=== PATIENT | female | born 1995 | race Caucasian/White ===

== ENCOUNTER → 2022-07-03 | Outpatient (CLI) | payer BC ==
[~2022-07-03] VITALS: Ht 157.5 cm; Wt 125.0 kg
[~2022-07-03] MED LIST: GLUCOPHAGE XR750 MG PO; PRENATAL FORMU1 EAC3 PO; UNISOM25 MG PO
[2022-07-03 17:20] VITALS: BP 124/68; PULSE 78; TEMP 98.1
[2022-07-03 17:53] VITALS: BP 120/62; PULSE 107
--- NOTE | 2022-07-03 17:54 | NUR ---
1750 FHT 125 BABY VERY ACTIVE, WITH REACTIVE STRIP. DR DUTTON CALLED WITH ALL INFORMATION AND ORDERS TO DISMISS TO RETURN SATURDAY FOR INDUCTION. ALL DISCHARGE INSTRUCTIONS GIVEN TO PATIENT AND , VERBAL UNDERSTANDING.
== END ==
LOC: LDRO 17:16
DX: Z36.83 Encounter for fetal screening for congenital cardiac abnormalities (principal); Z3A.38 38 weeks gestation of pregnancy

== ENCOUNTER → 2022-07-11 | Outpatient (CLI) | payer BC ==
[~2022-07-11] MED LIST changes: +IBU800 M1 PO; +PERCOCET 325 MG1 TA3 PO
--- NOTE | 2022-07-11 13:20 | NUR ---
Pt, Isamar Garcia, presents to outpatient consult with 5 day old baby girl Jaci Garcia, and her Jatinder Garcia. Pt is know to this LC from their hospital stay and is aware Jaci is not latching well. Jaci was born on [birth year] and weighed 7# 0.5oz (3190 gms). was difficult in the hospital due to several factors and at time of discharge pt was offering Jaci breast, pumping and bottle feeding. At this age Jaci is drinking 30-60ml of EBM per feeding. Pt is expressing 100-150ml per breast so is only pumping x4 per day. Today Jaci weighs 6# 12.1oz (3064 gms). Discharge weight two days ago was 3020 gms. 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 She does not grasp the gloved finger offered with oral examination, LC feels gum compression on the back of the finger. When latching Jaci is quite fussy and does not grasp the breast for latching. Breastmilk is easily expressable but she does not latch until a nipple shield is placed. With the nipple shield is placed Jaci does keep it in her mouth but check dimpling is noted. After bilaterally with the nipple shield Jaci has again of 16 gms. She is then fed ~2oz by bottle. LC notes she has a hard time getting her suck established on the bottle but eventually does. Her museum librarian on the bottle is only fair. recommends having her oral anatomy evaluated for tethers, provider information provided to family. Report of 's bilirubin from staff nurse to family: does not need repeat bilirubin, keep follow up appts. POC: Continue offering breast as desired, bottle fed 60+ml x8 feedings per day. Pump as instructed. F/U: with LC prn, as scheduled with physicians.
== END ==
LOC: LAC 07-10 15:11
DX: Z39.1 Encounter for care and examination of lactating mother (principal); Z71.89 Other specified counseling

== ENCOUNTER → 2022-08-16 | Outpatient (CLI) | payer BC ==
--- NOTE | 2022-08-16 16:25 | NUR ---
Pt, Isamar Garcia, presents to walk-in clinic with 6 week old baby girl, Jaci Garcia, with latch concerns. Jaci is S/P 1 week of tongue and lip tie release. Pt feels latching is more difficult p release. Jaci was born on [birth year] and weighed 7# 0.5oz (3189 gms). She was seen in this clinic on 08/02/22 and weighed 8# 3.7oz (3734 gms). Today Jaci weighs 9# 5.5oz (4238 gms). Pt states Jaci nursed well p release of tongue tie one wek ago. Since then she feels Jaci is fussy, and has diffiuclty staying latched. With it is observed that patient has an abundant supply of milk and it overwhelms Jaci with let-down. After a handfull of minutes trying ot get Jaci latched, she eventually settles in and nurses. After Jaci had a weight gain of 128 gms (4.5oz). Impression: oversupply of milk with forceful let-down. POC: Express 0.5-1oz prior to latching to get pressure off the breast and slow let-down. Stop pumping at other times during the day. F/U: As desired at walk-in clinic, as scheduled with physicians. Questions invited and answered.
== END ==
LOC: LAC 13:22
DX: Z39.1 Encounter for care and examination of lactating mother (principal)